=== PATIENT | female | born 1965 | race Caucasian/White ===

== ENCOUNTER 2024-05-04 10:52 | Emergency (ER) | payer OTHER ==
[~2024-05-04] VITALS: Ht 157.5 cm; Wt 56.2 kg
[2024-05-04] MEDS ORDERED: ERYTHROMYCIN 1 GM TUBE OS ONE (11:30)
[2024-05-04] MEDS ORDERED: POLYMYXIN B-TMP10 ML OPTH (11:30)
[2024-05-04 11:47] VITALS: BP 152/106
== END 2024-05-04 11:47 | disposition home or self-care (01) ==
LOC: ED 10:52
DX: H10.9 Unspecified conjunctivitis (principal)
CPT/HCPCS: 99282